=== PATIENT | male | born 2000 | race Two or more races ===

== ENCOUNTER 2023-09-18 09:21 | Emergency (ER) | payer OTHER ==
[~2023-09-18] VITALS: Ht 190.5 cm; Wt 96.8 kg
[2023-09-18] MEDS: dexamethasone sod phosphate 10mg/ml inj IM STA (09:31)
[2023-09-18] MEDS ORDERED: ketorolac trometh inj. 60 MG/2 ML VIAL IM ONE (09:35)
[2023-09-18] MEDS: cyclobenzaprine 10mg tablet PO ONE (09:35)
[2023-09-18] MEDS ORDERED: LIDO700A32 TOP (10:35)
[2023-09-18] MEDS ORDERED: CYCL-1 PO (10:35)
[2023-09-18] MEDS: ketorolac tromethamine 15mg/ml inj. IM ONE (10:36)
[2023-09-18 11:12] VITALS: BP 130/64; PULSE 69; RESP 16; TEMP 97.8; O2SAT 99
== END 2023-09-18 11:15 | disposition home or self-care (01) ==
LOC: ER 09:22
DX: S29.012A Strain of muscle and tendon of back wall of thorax, initial encounter (principal); S39.012A Strain of muscle, fascia and tendon of lower back, initial encounter; X58.XXXA Exposure to other specified factors, initial encounter; Y93.89 Activity, other specified; Y92.89 Other specified places as the place of occurrence of the external cause; Y99.0 Civilian activity done for income or pay
CPT/HCPCS: 72074; 72100; 96372; 99284; J1100; J1885